=== PATIENT | female | born 1955 | race Caucasian/White ===

== ENCOUNTER 2016-09-26 09:15 | Emergency (ER) | payer OTHER ==
[~2016-09-26 09:15] MED LIST: NAPR500T PO; SIMV20TA3 PO
[2016-09-26 10:53] VITALS: BP 158/94
[2016-09-26] MEDS ORDERED: KETOROLAC TROMETHAMINE 60 MG/2 ML SYRINGE. IM ONE (11:15)
[2016-09-26] MEDS ORDERED: ORPHENADRINE CITRATE 60 MG/2 ML VIAL. IM ONE (11:15)
[2016-09-26] MEDS ORDERED: HYDROCODONE/APAP 5/325MG TABLET. PO ONE (11:15)
--- NOTE | 2016-09-26 11:28 | RAD ---
CT of the lumbar spine without contrast, 09/26/2016: History: Fall, tingling in both legs Noncontrast scans were obtained with multiplanar reconstructions produced. No fracture or destructive bony lesion is evident. At L1-2 there are mild degenerative changes involving the facet joints. There is moderate broad-based posterior disc bulging. There is borderline narrowing of the central spinal canal with thecal sac measuring 9-10 mm in AP diameter at the midline. There is mild inferior foraminal narrowing bilaterally. At L2-3 there are more extensive degenerative changes involving the facet joints with moderate posterior ligamentous thickening. There is moderate broad-based posterior disc bulging. The combination of findings is causing moderate central spinal stenosis in a triangular configuration. The thecal sac measures 5-6 mm in AP diameter at the midline. There is moderate inferior foraminal encroachment bilaterally. At L3-4 there are also severe hypertrophic degenerative changes involving the facet joints. There is a slight associated spondylolisthesis. There is mild broad-based posterior disc bulging. There is severe central spinal stenosis with the thecal sac narrowing down to an AP diameter of 4-5 mm at the midline. There is mild bilateral foraminal encroachment, more so on the left. At L4-5 there are moderate hypertrophic degenerative changes involving the facet joints with posterior ligamentous thickening. There is a slight reverse spondylolisthesis. There is moderate broad-based posterior disc bulging. The combination of is causing severe central spinal stenosis. There is moderate bilateral foraminal narrowing. At L5-S1 there are moderate degenerative changes involving the facet joints. There is moderate posterior marginal spurring which is most prominent laterally on both sides. There is mild narrowing of the central spinal canal and moderate bilateral foraminal encroachment due to the spurs. IMPRESSION: 1. No acute bony abnormality is detected. 2. Moderate multilevel degenerative change as described above, with central spinal stenosis at multiple levels, most severe at L4-5, L3-4 and L2-3.
[2016-09-26] MEDS ORDERED: PREDNISONE 20 MG TABLET PO ONE (12:15)
[2016-09-26] MEDS ORDERED: PRED20TA PO (12:16)
[2016-09-26] MEDS ORDERED: CYCL10TA2 PO (12:16)
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
== END 2016-09-26 12:33 | disposition home or self-care (01) ==
LOC: ER 09:15
DX: M54.41 Lumbago with sciatica, right side (principal); M48.06 Spinal stenosis, lumbar region; Z90.710 Acquired absence of both cervix and uterus; Z88.8 Allergy status to other drugs, medicaments and biological substances
CPT/HCPCS: 72131; 96372; 99284; J1885; J2360; J7512

== ENCOUNTER 2021-04-06 14:22 | Emergency (ER) | payer MEDICARE, OTHER ==
[~2021-04-06] VITALS: Ht 167.6 cm; Wt 113.0 kg
[~2021-04-06 14:22] MED LIST changes: +CYCL10TA2 PO; +NAPR-683 PO; -NAPR500T PO; +PRED20TA PO; +SIMV20TA18 PO; -SIMV20TA3 PO
[2021-04-06 15:55] VITALS: BP 159/69
--- NOTE | 2021-04-06 16:46 | PHYS DOC ---
Past Medical History Past Medical History: No Pertinent History Additional Past Medical Histor: NEUROPATHY, DDD Past Surgical History: Hysterectomy, Other Additional Past Surgical Histo: L ANKLE, BREAST BIOPSY, BACK FX W/ SX Smoking Status: Current Every Day Smoker Alcohol Use: Occasionally Drug Use: None General Adult EDM: Chief Complaint: HIP PAIN HPI: HPI: Patient is a 66 year old female who present to ER for evaluation of low back pain that radiates to her right hip and right buttock area. The pain is worsened whenever she sit on her right buttock area, denies any bowel or bladder incontinence. Patient denies any numbness or weakness in her lower extremity. Patient denies any abdominal pain, no nausea vomiting. Patient denies any fever. Review of Systems: Review of Systems: Constitutional: Denies fever or chills. [] Eyes: Denies change in visual acuity. [] HENT: Denies nasal congestion or sore throat. [] Respiratory: Denies cough or shortness of breath. [] Cardiovascular: Denies chest pain or edema. [] GI: Denies abdominal pain, nausea, vomiting, bloody stools or diarrhea. [] : Denies dysuria. [] Musculoskeletal: Positive for low back pain, right hip pain. Integument: Denies rash. [] Neurologic: Denies headache, focal weakness or sensory changes. [] Endocrine: Denies polyuria or polydipsia. [] Lymphatic: Denies swollen glands. [] Psychiatric: Denies depression or anxiety. [] Heart Score: C/O Chest Pain: N/A Risk Factors: Risk Factors: DM, Current or recent (<one month) smoker, HTN, HLP, family history of CAD, obesity. Risk Scores: Score 0 - 3: 2.5% MACE over next 6 weeks - Discharge Home Score 4 - 6: 20.3% MACE over next 6 weeks - Admit for Clinical Observation Score 7 - 10: 72.7% MACE over next 6 weeks - Early Invasive Strategies Current Medications: Current Medications Medications (Trade) Dose Ordered Sig/[facility] Start Time Stop Time Status Last Admin Dose Admin Ketorolac Tromethamine (Toradol Im) 60 mg 1X ONCE 04/06/21 17:00 04/06/21 17:01 Methylprednisolone Sodium Succinate (SOLU-Medrol 125MG VIAL) 125 mg 1X ONCE 04/06/21 17:00 04/06/21 17:01 Orphenadrine Citrate (Norflex) 60 mg 1X ONCE 04/06/21 17:00 04/06/21 17:01 Allergies: Allergies: Allergies Coded Allergies Type Severity Reaction Last Updated Verified adhesive Allergy Mild blisters 07/07/14 Yes Physical Exam: PE: Constitutional: Well developed, well nourished, no acute distress, non-toxic appearance. [] HENT: Normocephalic, atraumatic, bilateral external ears normal, oropharynx moist, no oral exudates, nose normal. [] Eyes: PERRLA, EOMI, conjunctiva normal, no discharge. [] Neck: Normal range of motion, no tenderness, supple, no stridor. [] Cardiovascular:Heart rate regular rhythm, no murmur [] Lungs & Thorax: Bilateral breath sounds clear to auscultation [] Abdomen: Bowel sounds normal, soft, no tenderness, no masses, no pulsatile masses. [] Skin: Warm, dry, no erythema, no rash. [] Back: There is tenderness to palpation in lower lumbar area at L4 and L5. Extremities: No tenderness, no cyanosis, no clubbing, ROM intact, no edema. Right side hip is tender to palpation, no deformity noted. Neurologic: Alert and oriented X 3, normal motor function, normal sensory function, no focal deficits noted. [] Psychologic: Affect normal, judgement normal, mood normal. [] Current Patient Data: Vital Signs: Vital Signs Date Time Temp Pulse Resp B/P (MAP) Pulse Ox O2 Delivery O2 Flow Rate FiO2 04/06/21 15:55 99.0 79 16 159/69 (115) 94 Room Air 99.0 EKG: EKG: [] Radiology/Procedures: Radiology/Procedures: [] Course & Med Decision Making: Course & Med Decision Making Pertinent Labs and Imaging studies reviewed. (See chart for details) Patient is a 66-year-old female who present to ER due to low back pain radiated to her right buttock area, the pain is worse when she sit on her right buttock. Denies any injury. X-ray did not show any acute problem, her pain is consistent with sciatica which she had in the past. Patient will be discharged home with pain medication and steroid with muscle relaxer. Patient is amenable to plan of care. Dragon Disclaimer: Dragon Disclaimer: This electronic medical record was generated, in whole or in part, using a voice recognition dictation system. Departure Departure Impression: Primary Impression: Acute right-sided back pain with sciatica Disposition: HOME / SELF CARE / HOMELESS Condition: IMPROVED Referrals: DEANDRA RHODES MD (PCP) Follow-up with your family physician on Thursday for reevaluation. Patient Instructions: Sciatica with [facility] Additional Instructions: Thank you for visiting our Emergency Department. We appreciate you trusting us with your care. If any additional problems come up don't hesitate to return to visit us. Please follow up with your primary care provider so they can plan additional care if needed and know about the problem that you had. If symptoms worsen come back to the Emergency Department. Any concerning symptoms that start such as chest pain, shortness of air, weakness or numbness on one side of the body, running high fevers or any other concerning symptoms return to the ER. Scripts Cyclobenzaprine Hcl (CYCLOBENZAPRINE HCL) 10 Mg Tablet 1 TAB PO TID PRN for back spasm, #15 TAB Prov: RODRICK WING DO 04/06/21 Hydrocodone/Acetaminophen (Hydrocodone-Acetamin 5-325 mg) 1 Each Tablet 1 EACH PO Q6HRS PRN for PAIN, #12 TAB Prov: RODRICK WING DO 04/06/21 Prednisone (PREDNISONE) 20 Mg Tablet 1 TAB PO DAILY for 7 Days, #7 TAB Prov: RODRICK WING DO 04/06/21 RODRICK WING DO Apr 06, 2021 16:46
[2021-04-06] MEDS ORDERED: ORPHENADRINE CITRATE 60 MG/2 ML VIAL. IM ONE (17:00)
[2021-04-06] MEDS ORDERED: methylPREDNISolone SOD SUCC PF 125 MG/2 ML VIAL. IM ONE (17:00)
[2021-04-06] MEDS ORDERED: KETOROLAC 60 MG/2 ML VIAL. IM ONE (17:00)
[2021-04-06] MEDS ORDERED: PRED20TA PO (18:03)
[2021-04-06] MEDS ORDERED: HYDR-2759 PO (18:03)
[2021-04-06] MEDS ORDERED: CYCL10TA2 PO (18:03)
--- NOTE | 2021-04-06 18:03 | RAD ---
EXAM: AP pelvis, AP and lateral views right hip DATE: 04/06/2021 4:42 PM INDICATION: Reason: right hip pain since yesterday no known injury / Spl. Instructions: / History: . COMPARISON: No Prior FINDINGS: Lower lumbar spine fusion hardware is seen. Bilateral hip joint osteoarthritis. No pubic symphysis or SI joint diastases.No acute fracture or dislocation. IMPRESSION: No evidence of acute fracture or dislocation. Moderate bilateral hip joint osteoarthritis. Electronically signed by: Candido Garrido MD (04/06/2021 6:01 PM) EDDIE
--- NOTE | 2021-04-06 18:05 | RAD ---
EXAM: AP, lateral and lumbosacral spot views of the lumbar spine DATE: 04/06/2021 4:42 PM INDICATION: Reason: lower back pain since yesterday/ no known injury / Spl. Instructions: / History: COMPARISON: Lumbar radiographs 08/27/2016 FINDINGS: 5 nonrib-bearing lumbar-type vertebral bodies. Postoperative changes on L3-L5 posterolateral interped iculate fusion without definite hardware complication. Severe L1-2 disc height loss. Moderate L4-5 an d L5-S1 disc height loss. Advanced facet degenerative change L1-2 and below. No spondylolisthesis. Va scular calcifications are seen. Moderate colonic stool content. IMPRESSION: Posterolateral fusion L3-L5 without definite hardware complication or fracture. Multilevel degenerative changes as above most prominent at L1-2 with severe disc height loss and endp late sclerosis Electronically signed by: Candido Garrido MD (04/06/2021 6:03 PM) EDIDE
== END 2021-04-06 18:51 | disposition home or self-care (01) ==
LOC: ER 14:22
DX: M54.41 Lumbago with sciatica, right side (principal); F17.200 Nicotine dependence, unspecified, uncomplicated; Z88.8 Allergy status to other drugs, medicaments and biological substances
CPT/HCPCS: 72100; 73502; 96372; 99284; J1885; J2360; J2930

== ENCOUNTER → 2021-08-29 | Outpatient (CLI) | payer MEDICARE ==
[~2021-08-29] MED LIST changes: +CYCL10TA19 PO; -CYCL10TA2 PO; +HYDR-2759 PO
--- NOTE | 2021-08-29 15:20 | CARD ---
MR#: [id number] Date of Study: 08/29/2021 Ordering Physician: CLAUDINE JENKINS, Referring Physician: CLAUDINE JENKINS, Tech: Prisca Kilgore, [facility] APPROVED REPORT EXAM: Two-dimensional and M-mode echocardiogram with Doppler and color Doppler. Other Information Quality : FairHR: 63bpm INDICATION Murmur RISK FACTORS Hypertension Hyperlipidemia Smoking 2D DIMENSIONS Left Atrium(2D)3.3 (1.6-4.0cm)IVSd1.1 (0.7-1.1cm) Aortic Root(2D)3.3 (2.0-3.7cm)LVDd4.9 (3.9-5.9cm) LVOT Diameter2.0 (1.8-2.4cm)PWd1.1 (0.7-1.1cm) LVDs3.8 (2.5-4.0cm)FS (%) 23.0 % SV52.2 mlLVEF(%)45.9 (>50%) Aortic Valve AoV Peak Marlon.201.1cm/sAoV VTI41.6cm AO Peak GR.16.2mmHgLVOT Peak Marlon.131.7cm/s LVOT VTI 30.48cmAO Mean GR.9mmHg ARNOLD (VMAX)1.85rm2JVR (VTI)2.27cm2 Mitral Valve MV E Gmpcvndb01.9cm/sMV DECEL ZPAE777ac MV A Yzeqmnzn625.1cm/sMV E Mean Gr.3mmHg MV RUX45lsN/A Ratio0.9 MVA (PHT)3.46cm2 TDI E/Lateral E'12.7E/Medial E'11.5 Pulmonary Valve PV Peak Fpahtqub68.6cm/sPV Peak Grad.4mmHg Tricuspid Valve TR P. Xoslvqff126bx/sRAP RQVAEOKI2zlJf TR Peak Gr.75onLkLYVT17srFo Pulmonary Vein S1 Wbkhiknv03.6cm/sD2 Jzuxdqjd24.2cm/s PVa hayfkyqk910bupb LEFT VENTRICLE The left ventricle is normal size. There is mild concentric left ventricular hypertrophy. The left ve ntricular systolic function is normal and the ejection fraction is within normal range. The Ejection Fraction is 50-55%. Wall motion consistent with conduction abnormality. Otherwise, grossly normal wal l motion. Tissue Doppler imaging reveals mild left ventricular diastolic dysfunction. RIGHT VENTRICLE The right ventricle is mildly dilated. There is normal right ventricular wall thickness. The right ve ntricular systolic function is normal. ATRIA The left atrium size is normal. The right atrium is borderline dilated. The interatrial septum is int act with no evidence for an atrial septal defect or patent foramen ovale as noted on 2-D or Doppler i maging. AORTIC VALVE The aortic valve is normal in structure and function. Doppler and Color Flow revealed no significant aortic regurgitation. There is no significant aortic valvular stenosis. Calculated aortic valve area is 2.08 cm2 with maximum pressure gradient of 22 mmHg and mean pressure gradient of 11 mmHg. MITRAL VALVE The mitral valve is normal in structure and function. There is no evidence of mitral valve prolapse. There is no mitral valve stenosis with a mean gradient of 3 mmHg. Doppler and Color-flow revealed tra ce mitral regurgitation. TRICUSPID VALVE The tricuspid valve is normal in structure and function. Doppler and Color Flow revealed trivial regu rgitation. RVSP 30 mm Hg. There is no tricuspid valve stenosis. PULMONIC VALVE The pulmonic valve is not well visualized. Doppler and Color Flow revealed no pulmonic valvular regur gitation. There is no pulmonic valvular stenosis. GREAT VESSELS The aortic root is normal in size. The ascending aorta is normal in size. The IVC is normal in size a nd collapses >50% with inspiration. PERICARDIAL EFFUSION There is no evidence of significant pericardial effusion. Critical Notification Critical Value: No <Conclusion> The left ventricular systolic function is normal and the ejection fraction is within normal range. T he Ejection Fraction is 50-55%. Wall motion consistent with conduction abnormality. Otherwise, grossly normal wall motion. The right ventricle is mildly dilated. Doppler and Color Flow revealed trivial regurgitation. RVSP 30 mm Hg. Signed by : Bharath Peterson, Electronically Approved : 08/29/2021 15:20:27
== END ==
LOC: ECHO 08:49
PROVIDERS: ATTEND Internal Medicine Cardiovascular Disease
DX: I07.1 Rheumatic tricuspid insufficiency (principal); R01.1 Cardiac murmur, unspecified
CPT/HCPCS: 93306